=== PATIENT | male | born 1975 | race Caucasian/White ===

== ENCOUNTER 2021-11-07 11:40 | Inpatient (IN) ==
[2021-11-07] MEDS ORDERED: Ondansetron 4 mg VIAL 2 MG/ML 2 ml VIAL IV ONE (11:41)
[2021-11-07 12:05] LABS: ABS Basophils 0.1 10^3/ul (0-0.2); ABS Eosinophils 0.2 10^3/ul (0-0.6); ABS Lymphocytes 2.9 10^3/ul (1.0-4.8); ABS Monocytes 0.7 10^3/ul (0-0.8); ABS Neutrophils 4.3 10^3/ul (1.5-7.7); Eosinophil % 2.7 %; Hematocrit 51 % (42-52); Hemoglobin 17.5 g/dL (14.0-18.0); Lymphocyte % 35.8 %; Mean Corpuscular HGB Conc 34 g/dL (31-36); Mean Corpuscular Hemoglobin 30 pg (27-31); Mean Corpuscular Volume 87 fL (80-94); Mean Platelet Volume 7.9 fL (7.4-10.4); Nucleated Red Blood Cells % 0.4; Platelet Count 267 10^3/uL (150-450); Red Blood Count 5.88 10^6 /uL (4.18-5.48); Red Cell Distribution Width 14 % (10-15); White Blood Count 8.2 10^3/uL (3.5-10.8)
[2021-11-07 12:11] LABS: INR 1.02 (0.86-1.15)
[2021-11-07] MEDS ORDERED: NS 0.9% 1000 ml BAG 1,000 ML IV ONE (12:21)
[2021-11-07] MEDS: Morphine 4 MG/ML VIAL (1 ml) IV PRN ×3 (12:31→14:22)
[2021-11-07 12:47] LABS: Albumin 4.8 g/dL (3.2-5.2); Albumin/Globulin Ratio 1.8 (1-3); Calcium 9.7 mg/dL (8.6-10.3); Globulin 2.6 g/dL (2-4); Potassium 4.5 mmol/L (3.5-5.0); Total Bilirubin 0.8 mg/dL (0.2-1.0); Total Protein 7.4 g/dL (6.4-8.9); eGFR CKD-EPI 104.5 (>60)
[2021-11-07 13:07] LABS: Activated Partial Thrombo Time 30.6 seconds (26.0-38.0)
[2021-11-07 13:36] LABS: High Sensitivity Troponin 1 Hr 20 pg/mL (<20)
[2021-11-07] MEDS ORDERED: Al Hydrox/Mg Hydrox/Simet LIQ 30 ML UDC PO ONE (13:46)
[2021-11-07] MEDS ORDERED: Morphine 10 MG/ML VIAL (1 ml) IV ONE (14:26)
[2021-11-07 14:48] LABS: C Reactive Protein 1.39 mg/L (<8.01)
[2021-11-07] MEDS ORDERED: Pantoprazole VIAL 40 MG VIAL IV ONE (14:49)
[2021-11-07] MEDS ORDERED: Al Hydrox/Mg Hydrox/Simet LIQ 30 ML UDC PO PRN (14:49)
[2021-11-07 14:54] LABS: Urine Benzodiazepine Screen None Detected (None Detect); Urine Cannabinoids Screen None Detected (None Detect); Urine Opiates Screen Presumptive Positive (None Detect)
[2021-11-07 15:03] LABS: TSH Ultra Thyroid Stim Horm 2.04 mcIU/mL (0.34-5.60)
[2021-11-07 16:00] LABS: HDL Cholesterol 43.7 mg/dL
[2021-11-07 16:10] LABS: High Sensitivity Troponin 3 Hr 66 pg/mL (<20)
[2021-11-07] MEDS ORDERED: Heparin DRIP 25,000 UNITS BAG 25,000 UNITS/500 ML BAG IV SCH (16:30)
[2021-11-07] MEDS ORDERED: Heparin 5000 UNITS/ML 1 mL VIAL IV SCH (17:00)
[2021-11-07] MEDS ORDERED: Ondansetron 4 mg VIAL 2 MG/ML 2 ml VIAL IV PRN (17:25)
[2021-11-07] MEDS ORDERED: Metoprolol Tartrate 5 mg VIAL 5 ml VIAL (1 mg/ml) IV ONE (17:28)
[2021-11-07] MEDS ORDERED: Iohexol 350 (CONTRAST) 500 ML MDV IV ONE (17:56)
[2021-11-07] MEDS: Heparin DRIP 25,000 UNITS BAG 25,000 UNITS/500 ML BAG IV SCH (19:57)
[2021-11-07] MEDS: Heparin 5000 UNITS/ML 1 mL VIAL IV SCH (19:58)
[2021-11-08] MEDS: Heparin 5000 UNITS/ML 1 mL VIAL IV SCH (02:32)
[2021-11-08] MEDS: Heparin DRIP 25,000 UNITS BAG 25,000 UNITS/500 ML BAG IV SCH (02:33)
[2021-11-08] MEDS ORDERED: NS 0.9% 1000 ml BAG 1,000 ML IV SCH (08:15)
[2021-11-08 08:33] LABS: ABS Basophils 0.1 10^3/ul (0-0.2); ABS Eosinophils 0.1 10^3/ul (0-0.6); ABS Lymphocytes 1.9 10^3/ul (1.0-4.8); ABS Monocytes 0.7 10^3/ul (0-0.8); ABS Neutrophils 7.2 10^3/ul (1.5-7.7); Eosinophil % 0.6 %; Hematocrit 47 % (42-52); Lymphocyte % 19.2 %; Mean Corpuscular HGB Conc 34 g/dL (31-36); Mean Corpuscular Hemoglobin 30 pg (27-31); Mean Corpuscular Volume 87 fL (80-94); Mean Platelet Volume 7.6 fL (7.4-10.4); Nucleated Red Blood Cells % 0.1; Platelet Count 248 10^3/uL (150-450); Red Blood Count 5.38 10^6 /uL (4.18-5.48); Red Cell Distribution Width 15 % (10-15)
[2021-11-08 09:09] LABS: Calcium 8.8 mg/dL (8.6-10.3); Magnesium 1.9 mg/dL (1.9-2.7); Potassium 4.3 mmol/L (3.5-5.0); eGFR CKD-EPI 114.3 (>60)
[2021-11-08 10:00] LABS: High Sensitivity Troponin 1 Hr 20044 pg/mL (<20)
[2021-11-08] MEDS ORDERED: Midazolam 5 mg/5 ml VIAL 1 mg/ml 5 ml VIAL (5 mg) ONE (10:56)
[2021-11-08] MEDS ORDERED: Heparin 1,000 UNIT/ML 10 ml (10,000 UNITS) CATHLAB/DIALYSIS ONE ×2 (10:56→11:43)
[2021-11-08] MEDS ORDERED: fentaNYL 100 mcg/2 ml 50 MCG/ML VIAL ONE (10:56)
[2021-11-08] MEDS ORDERED: Iohexol 350 (CONTRAST) 50 ML SDV IV ONE ×3 (10:57→11:34)
[2021-11-08] MEDS ORDERED: nitroGLYCERIN DRIP 25,000 MCG/250 ML BTL ONE (10:57)
[2021-11-08] MEDS ORDERED: Lidocaine 1% MPF 5 ML VIAL ONE (10:57)
[2021-11-08] MEDS ORDERED: niCARdipine 0.1MG/ML IVPREMIX 20 MG/200 ML BAG IV ONE (10:57)
[2021-11-08] MEDS ORDERED: Heparin 2 UNITS/ML 1000 mls 3,000 ML IV ONE (10:58)
[2021-11-08] MEDS ORDERED: Dextrose 50% Syringe 50 ml 25 GM/50 ML SYRINGE IV PUSH PRN (11:35)
[2021-11-08] MEDS ORDERED: Iohexol 300 (CONTRAST) 10 ML SDV ONE (11:36)
[2021-11-08] MEDS ORDERED: Eptifibatide IV (Load dose) 2 MG/ML 10 ml VIAL ONE ×2 (11:48→12:06)
[2021-11-08] MEDS ORDERED: Prasugrel 10 mg TAB (NF) ONE (12:30)
[2021-11-09 05:27] LABS: ABS Basophils 0.1 10^3/ul (0-0.2); ABS Neutrophils 5.6 10^3/ul (1.5-7.7); Eosinophil % 0.6 %; Hematocrit 47 % (42-52); Hemoglobin 16.3 g/dL (14.0-18.0); Lymphocyte % 22.7 %; Mean Corpuscular HGB Conc 35 g/dL (31-36); Mean Corpuscular Hemoglobin 31 pg (27-31); Mean Corpuscular Volume 88 fL (80-94); Mean Platelet Volume 7.9 fL (7.4-10.4); Platelet Count 241 10^3/uL (150-450); Red Blood Count 5.31 10^6 /uL (4.18-5.48); Red Cell Distribution Width 15 % (10-15); White Blood Count 8.7 10^3/uL (3.5-10.8)
[2021-11-09 06:07] LABS: Calcium 8.9 mg/dL (8.6-10.3); Phosphorus 2.5 mg/dL (2.5-5.0); Potassium 4.1 mmol/L (3.5-5.0); eGFR CKD-EPI 109.6 (>60)
[2021-11-09] MEDS ORDERED: Aspirin EC 81 mg TAB.EC (enteric coated) PO SCH (09:00)
[2021-11-09] MEDS ORDERED: CMCS: Prasugrel 10 mg TAB (NF) PO SCH (09:00)
[2021-11-09 11:43] VITALS: BP 118/94
== END 2021-11-09 12:30 | disposition home or self-care (01) | DRG 174 ==
LOC: ED 11:40 → EDHOLD 11:40 → MEDTELE 19:48 → ICU 11-08 12:59 → SUATTDRO 11-08 17:46
PROVIDERS: ADMIT Internal Medicine; ATTEND Surgery Surgical Critical Care